=== PATIENT | male | born 1980 ===

== ENCOUNTER 2018-05-30 12:10 | Outpatient (CLI) | payer OTHER ==
[~2018-05-30] VITALS: Ht 177.8 cm; Wt 113.4 kg
== END 2018-05-30 12:30 | disposition home or self-care (01) ==
LOC: OFIC 805 12:10
DX: H91.8X3 Other specified hearing loss, bilateral (principal); H69.90 Unspecified Eustachian tube disorder, unspecified ear; R42 Dizziness and giddiness

== ENCOUNTER 2018-07-04 08:48 | Outpatient (CLI) | payer OTHER ==
[~2018-07-04] VITALS: Ht 152.4 cm; Wt 113.4 kg
== END 2018-07-04 09:00 | disposition home or self-care (01) ==
LOC: OFIC 805 08:48
DX: R42 Dizziness and giddiness (principal); H90.41 Sensorineural hearing loss, unilateral, right ear, with unrestricted hearing on the contralateral side; H69.90 Unspecified Eustachian tube disorder, unspecified ear; H91.8X3 Other specified hearing loss, bilateral